=== PATIENT | male | born 1955 | race African-American/Black ===

== ENCOUNTER 2020-11-15 23:18 | Inpatient (IN) | payer OTHER, BC ==
[~2020-11-15] VITALS: Wt 111.1 kg
[~2020-11-15 23:18] MED LIST: BISOPROLOL FUM2.5 MG; FUROSEMIDE 20 M20 M1 PO; GUAIF-DM-PSE S120 ML; HUMALOG100 UNIT/1 SUBQ; LANTUS SUBQ; LISINOPRIL2.5 MG; NORCO 5-325 TA1 EACH PO
[2020-11-15 23:20] VITALS: BP 105/74
[2020-11-15 23:39] LABS: ABSOLUTE NEUTROPHILS 5.2 thou/uL (1.4-8.2); BASOPHILS 0.9 % (0.0-2.0); HEMATOCRIT 34.8 % (42.0-52.0); HEMOGLOBIN 11.4 gm/dL (14.0-18.0); LYMPHOCYTES 16.1 % (24.0-44.0); MCH 35.2 pg (26.0-34.0); MCHC 32.6 g/dL (28.0-37.0); MCV 107.8 fL (80.0-100.0); MONOCYTES 10.8 % (1.0-8.0); PLATELET COUNT 148 thou/uL (150-400); POLYS 69.2 % (36.0-66.0); RBC 3.23 mil/uL (4.50-6.00); RDW 17.3 % (10.5-14.5); WBC 7.5 thou/uL (4.0-11.0)
[2020-11-15 23:48] LABS: CALCIUM 9.1 mg/dL (8.5-10.1); CREATININE 5.4 mg/dL (0.7-1.3); POTASSIUM 4.3 mmol/L (3.5-5.1)
[2020-11-15 23:51] LABS: INR 2.7; PROTIME 28.1 Seconds (10.5-12.1)
[2020-11-15 23:58] LABS: ALBUMIN 3.6 g/dL (3.4-5.0); TOTAL BILIRUBIN 1.3 mg/dL (0.2-1.0); TOTAL PROTEIN 8.6 g/dL (6.4-8.2)
--- NOTE | 2020-11-16 00:04 | NUR ---
PT NOTED TO HAVE RIGHT UPPER ARM DIALYSIS FISTULA.
--- NOTE | 2020-11-16 00:33 | NUR ---
PT'S DTR HERE AT BEDSIDE. SHE HELPED PROVIDE PT'S HISTORY TO ER PROVIDER. PT DROWSY BUT ARROUSABLE AND ABLE TO ANSWER SOME QUESTIONS.
[2020-11-16] MEDS ORDERED: CARVEDILOL25 MG PO (01:19)
[2020-11-16] MEDS ORDERED: TORSEMIDE20 MG PO (01:21)
[2020-11-16] MEDS ORDERED: WARFARIN SODIUM6 MG PO (01:21)
[2020-11-16] MEDS ORDERED: NEURONTIN 300M300 M2 PO (01:22)
[2020-11-16] MEDS ORDERED: ASPIRIN EC81 M1 PO (01:22)
[2020-11-16 01:30] LABS: URINE BILIRUBIN 2+ (Negative); URINE BLOOD 2+ (Negative); URINE CLARITY CLEAR; URINE COLOR YELLOW; URINE GLUCOSE-RANDOM* 1+ (Negative); URINE KETONES TRACE (Negative); URINE LEUKOCYTES-REFLEX NEGATIVE (Negative); URINE NITRITE-REFLEX NEGATIVE (Negative); URINE PROTEIN (DIPSTICK) 3+ (Negative); URINE SPECIFIC GRAVITY 1.025 (1.005-1.035)
[2020-11-16 01:40] LABS: AMP/METHAMP Negative (Negative); BARBITURATES Negative (Negative); BENZODIAZEPINES Negative (Negative); COCAINE Negative (Negative); METHADONE Negative (Negative); OPIATES Negative (Negative); PCP Negative (Negative)
--- NOTE | 2020-11-16 01:50 | NUR ---
DTR WILL TAKE PATIENTS BELONGINGS HOME WITH HER. THIS INCLUDES HIS VALUABLES SUCH WALLET, CAST, CELL PHONE, CLOTHES.
[2020-11-16 02:00] LABS: BACTERIA-REFLEX 1-9 Few /HPF (None Seen); CRYSTALS None Seen /LPF (None Seen); HYALINE CASTS 0-3 Few /LPF (None Seen); MUCUS 0-3 Light strn/LPF (None Seen); SQUAMOUS 0-3 Few /LPF (0-3); URINE RBC 3-10 Few /HPF (NONE SEEN); URINE WBC-REFLEX 0-5 Rare /HPF (0-5)
[2020-11-16 03:20] VITALS: BP 153/80
--- NOTE | 2020-11-16 03:27 | NUR ---
PT IS NOW ABLE TO ANSWER ALL ORIENTATION QUESTIONS. VSS. SPO2 STABLE ON 2LNC.
--- NOTE | 2020-11-16 07:10 | EKG ---
[place] [address] [place] [address] ELECTROCARDIOGRAM REPORT Name: SOFI BARR Room #: 204-P ADM IN M.R.#: [id number] Admission: 11/16/20 Attend Phys: Lopez Mckeon Discharge: Date of : 53 Report #: [id number] [facility] ED Test Date: 2020-11-15 Test Time: 23:38:20 Pat Name: SOFI BARR Department: Room: 204 Gender: M Podiatry Doctor: SAQIB : 1955 Requested By: Keyonna Wheatley Order Number: [id number] MD: Pierce Cardenas Measurements Intervals [employer] Rate: 70 P: 71 NJ: 217 QRS: 50 QRSD: 141 T: 88 QT: 478 QTc: 516 Interpretive Statements Sinus rhythm Borderline prolonged NJ interval Nonspecific intraventricular conduction delay Borderline T abnormalities, lateral leads Baseline wander in lead(s) V5 No previous ECG available for comparison Electronically Signed On 11-16-2020 7:10:41 CDT by Pierce Cardenas [email or web address] <ELECTRONICALLY SIGNED> By: Pierce Cardenas MD, [facility] 11/16/20 0710 37 Pierce Cardenas MD, [facility] /EPI
--- NOTE | 2020-11-16 07:13 | NUR ---
REPORT CALLED TO GONZÁLEZ HARDEN ON CCU.
[2020-11-16 07:14] VITALS: BP 139/67
[2020-11-16 07:30] VITALS: BP 148/85
[2020-11-16 11:30] VITALS: BP 156/92
--- NOTE | 2020-11-16 11:49 | 2DMMODE ---
[facility] [address] [place] [address] 2 D/M-MODE ECHOCARDIOGRAM Name: SOFI BARR Room #: 204-P ADM IN M.R.#: [id number] Admission: 11/16/20 Attend Phys: Lopez Mckeon Discharge: Date of : 53 Report #: [id number] THIS REPORT FOR: cc: Payal Turner MD, Sarah Beth MD Lundgren, Craig H. MD [facility] ~ APPROVED REPORT Study performed: 11/16/2020 10:08:31 EXAM: Comprehensive 2D, Doppler, and color-flow Echocardiogram Patient Location: Bedside Room #: 204 Status: routine BSA: 2.32 HR: 62 bpm BP: 148/85 mmHg Rhythm: NSR Other Information Study Quality: Good Indications Congestive Heart Failure Diabetes Syncope Cardiomyopathy Hypertension/HDD 2D Dimensions RVDd: 42.54 mm IVSd: 14.12 (7-11mm) LVOT Diam: 20.05 (18-24mm) LVDd: 57.63 mm PWd: 14.45 (7-11mm) Ascending Ao: 30.66 (22-36mm) LVDs: 48.23 (25-40mm) Left Atrium: 56.38 (27-40mm) Aortic Root: 28.97 mm IVC: 30.00 mm Volumes Left Atrial Volume (Systole) Single Plane 4CH: 137.60 mL Single Plane 2CH: 72.79 mL LA ESV Index: 52.00 mL/m2 Aortic Valve [facility] [address] [place] [address] 2 D/M-MODE ECHOCARDIOGRAM Name: SOFI BARR Room #: 204-P [facility] IN M.R.#: [id number] Admission: 11/16/20 Attend Phys: Lopez Rangel Discharge: Date of : 53 Report #: [id number] AoV Peak Rosendo.: 1.47 m/s AO Peak Gr.: 8.63 mmHg LVOT Max P.68 mmHg LVOT Max V: 0.82 m/s GABBY Vmax: 1.76 cm2 Mitral Valve E/A Ratio: 1.9 MV Decel. Time: 143.13 ms MV E Max Rosendo.: 1.05 m/s MV A Rosendo.: 0.56 m/s MV PHT: 41.51 ms IVRT: 119.95 ms Pulmonary Valve PV Peak Rosendo.: 0.83 m/s PV Peak Gr.: 2.78 mmHg Pulmonary Vein P Vein S: 0.38 m/s P Vein A: 0.13 m/s P Vein D: 0.59 m/s P Vein A Dur.: 50.7 msec P Vein S/D Ratio: 0.64 Tricuspid Valve TR Peak Rosendo.: 3.59 m/s TR Peak Gr.: 51.49 mmHg PA Pressure: 66.00 mmHg Left Ventricle Left ventricle is dilated. There is global hypokinesis of the left ventricle. Mild concentric left ventricular hypertrophy. Left ventricular ejection fraction is severely decreased. LVEF is 30%. Severe diastolic dysfunction Right Ventricle The right ventricle is normal size. The right ventricular systolic function is normal. Atria Left atrium is dilated. Right atrium is dilated. Aortic Valve The aortic valve is mildly calcified, trileaflet No aortic regurgitation is present. There is no aortic valvular stenosis. Mitral Valve Moderate mitral annular calcification Mild mitral regurgitation. No [facility] [place] [address] 2 D/M-MODE ECHOCARDIOGRAM Name: LÓPEZWAYANIKA BARROS Room #: 204-P [facility] IN M.R.#: [id number] Admission: 11/16/20 Attend Phys: Lopez Rangel Discharge: Date of : 53 Report #: [id number] evidence of mitral valve stenosis. Tricuspid Valve The tricuspid valve is normal in structure. There is mild to moderate tricuspid regurgitation. Estimated PAP 60 mmHg. There is moderate pulmonary hypertension. Pulmonic Valve The pulmonary valve is normal in structure. Trace pulmonic regurgitation. Great Vessels The aortic root is normal in size. The inferior vena cava is dilated with no inspiratory collapse. Pericardium There is no pericardial effusion. <Conclusion> Left ventricular ejection fraction is severely decreased. There is global hypokinesis of the left ventricle. LVEF is 30%. Severe diastolic dysfunction Both atria are dilated. The aortic valve is mildly calcified, trileaflet. No aortic regurgitation or stenosis. Moderate mitral annular calcification. Mild mitral regurgitation. There is mild to moderate tricuspid regurgitation. Estimated pulmonary artery pressure of 60 mmHg. There is no pericardial effusion. <ELECTRONICALLY SIGNED> By: Barron Dyer MD, [facility] 11/16/20 1149 1149 1149 Barron Dyer MD, FACC /INF
[2020-11-16 18:48] LABS: INR 2.53; PROTIME 26.4 Seconds (10.5-12.1)
[2020-11-16 20:15] VITALS: BP 139/83
[2020-11-17 03:35] VITALS: BP 121/66
--- NOTE | 2020-11-17 03:51 | NUR ---
RECEIVED PATIENT AT 1900H.PATIENT IS ALERT AND ORIENTEDX4.ON ROOM AIR BREATHING SPONTANEOUSLY.NOT IN DISTRESS.GIVEN LITTLE SNACK AT NIGHT.KEPT NPO FROM MIDNIGHT.ALL NEEDS ATTENDED.
[2020-11-17 05:47] LABS: INR 2.26; PROTIME 23.7 Seconds (10.5-12.1)
[2020-11-17 07:08] LABS: GLYCOHEMOGLOBIN (HGB A1C) 7.1 % (4.8-5.6)
[2020-11-17 07:37] VITALS: BP 119/66
[2020-11-17 11:45] VITALS: BP 123/75
[2020-11-17 11:58] LABS: INR 1.89
--- NOTE | 2020-11-17 12:06 | NUR ---
PT OFF FLOOR FOR PROCEDURE
--- NOTE | 2020-11-17 15:19 | NUR ---
PT BACK ON FLOOR
[2020-11-17 16:00] VITALS: BP 93/46
--- NOTE | 2020-11-17 16:25 | NUR ---
met with patient who admits with syncople episode. Patient was at [facility], the game was over. Patient went to restroom, he came out and felt dizzy. Asked friend to call EMS. Patient reports he lives in independent home with steps. he reports he uses a walker in home and community. He has a power scooter if needed. His 40 year old son lives in home part-time. Patient cont to drive. he Dialzes at [facility] MWF [phone]. Patent reports he has a shower/tub with a seat and reports no difficulty with bathing. PCP Dr Fortune. Jayden following for dc planning.
[2020-11-17 19:16] VITALS: BP 102/34
--- NOTE | 2020-11-17 20:20 | NUR ---
PT WAS NPO THROUGHOUT THE MORNING EXCEPT FOR PO MEDS. PACE MAKER WAS PLACED THIS AFTERNOON, NOW HAS A INCISION ON RIGHT UPPER CHEST THAT WAS CLOSED WITH GLUE NO DRAINAGE OR REDNESS OBSERVED. DIALYSIS THIS AM 2L REMOVED. BLOOD SUGARS REMAINED BELOW 100 THERE IS NO SLIDING SCALE ON INSULIN PT REFUSED BOTH SHORT AND LONG ACTING INSULINS. PT DENIED PAIN THROUGHOUT SHIFT.
[2020-11-18] VITALS (7 sets, daily range): BP systolic 85–152; BP diastolic 38–83
[2020-11-18 04:40] LABS: INR 1.36; PROTIME 14.6 Seconds (10.5-12.1)
--- NOTE | 2020-11-18 06:42 | NUR ---
SLEPT PART OF SHIFT. ASSIST UP TO RECLINER DUE TO BACK PAIN FROM LAYING IN BED. STATES THAT RELIEVED THE PAIN. LEFT ARM IN IMMOBILIZOR PER ORDERS. CONTINUE TO ASSES.
[2020-11-18] MEDS ORDERED: LIPITOR40 MG PO (14:25)
--- NOTE | 2020-11-18 16:07 | NUR ---
Dc planning visit with pt at bedside. Possible dc this evening. Pt does not want HH services [facility]. He declined PT eval today as he had walked to the bathroom with nursing. He indicates his son can help him get to/from dialysis and he has good family support at home. He denies any dc planning needs.
--- NOTE | 2020-11-18 18:20 | NUR ---
OVERALL PT HAD A GOOD DAY. 2 BOWEL MOVEMENTS CALLS OUT APPROPRAITLY WHEN NEEDING TO GO TO THE RESTROOM. PT DECLINED PT THIS AFTERNOON AND AGREED TO WALK WITH NURSE THIS EVENING. SPOKE WITH CASE MANAGEMENT, PHYSICIAN AND PATIENT. CURRENT PLAN IS FOR THE PT TO GO HOME AFTER DIALYSIS TOMORROW. PT DECLINED HOME HEALTH STATING HIS SON WHO LIVES WITH PT CAN TAKE CARE OF HIM.
[2020-11-19 01:06] LABS: GLYCOHEMOGLOBIN (HGB A1C) 6.8 % (4.8-5.6)
--- NOTE | 2020-11-19 03:01 | NUR ---
PT IS A/O X4 AND IS UP WITH MAX ASSIST WITH WALKER AND GB TO THE BR. ROOM AIR. VSS. SR ON THE MONITOR. DC ORDER POST PONED DUE TO PT NEEDING DIALYSIS THIS AM AND NOT HAVING TRANSPORTATION. PT DENIES C/O PAIN OR DISCOMFORT. INCISION IS C/D/I. LEFT ARM IMMOBILIZER SLING IN PLACE. PT RESTING COMFORTABLY IN RECLINER. CALLS OUT APPROPRIATELY FOR ASSISTANCE.
[2020-11-19 04:45] VITALS: BP 133/65
[2020-11-19 07:50] VITALS: BP 143/56
[2020-11-19 11:30] VITALS: BP 128/57
[2020-11-19 12:50] VITALS: BP 143/56
--- NOTE | 2020-11-19 13:01 | NUR ---
Patient was provided with discharge instructions. Awaiting completion of dialysis session this afternoon prior to discharge. Will discontinue IV access at time of actual discharge from unit. Dr. Smith aware of delay of discharge pending dialysis, household personal assistant also notified.
[2020-11-19 13:23] VITALS: BP 143/56
--- NOTE | 2020-11-19 13:29 | NUR ---
Pt dcing home today after dialysis. Recommendation and order for HH referral discussed again with the pt at bedside. He declined and does not feel he needs an RN,PT or OT coming out to the home. He indicates lots of support and assist at home and son to take him to dialysis. Dc summary, instructions and flow sheets faxed to [facility] for resumption of outpt dialysis Sunday. Clinical Psychology Teacher spoke with them yesterday as well and they have him on the schedule for Sunday.
--- NOTE | 2020-11-22 07:54 | HC ---
[facility] [place] [address] CONSULTATION Name: SOFI BARR Room #: 204-P [facility] IN M.R.#: [id number] Admission: 11/16/20 Attend Phys: Lopez Mckeon Discharge: 11/19/20 Date of : 53 Report #: [id number] THIS REPORT FOR: cc: Payal Turner MD,Payal Harris-Jeison,Alayna Olea MD ~ DATE OF SERVICE: 11/16/2020 CONSULTATION NOTE REASON FOR CONSULTATION: End-stage renal disease. REASON FOR PRESENTATION: Post-syncopal episode. HISTORY OF PRESENT ILLNESS: A 65-year-old with end-stage renal disease, maintained on hemodialysis every Sunday, Sunday and Sunday. Apparently, the patient had a collapsing event and was not responsive. He called the EMS. He was brought for further evaluation and management. I reviewed the patient's medical record. Back in August of this year, he had extensive workup with nothing revealing related to another syncopal episode. I would note that the patient has received his hemodialysis yesterday. He had 3.8 liters of fluid removed. PAST MEDICAL HISTORY: 1. Hypertension. 2. End-stage renal disease. 3. Diabetes mellitus. 4. Deep venous thrombosis. PAST SURGICAL HISTORY: Hip surgery, AV fistula. SOCIAL HISTORY: No drug or alcohol abuse. FAMILY HISTORY: Diabetes mellitus. ALLERGIES: None. MEDICATIONS: 1. Carvedilol. 2. Aspirin. 3. Gabapentin. 4. Insulin. 5. Warfarin. REVIEW OF SYSTEMS: GENERAL: Significant for weakness. CARDIOVASCULAR: No chest pain or palpitation. [facility] [address] [place] [address] CONSULTATION Name: SOFI BARR Room #: 204-P [facility] IN M.R.#: [id number] Admission: 11/16/20 Attend Phys: Lopez Mckeon Discharge: 11/19/20 Date of : 53 Report #: [id number] PULMONARY: No cough or hemoptysis. GASTROINTESTINAL: No nausea or vomiting. NEUROLOGICAL: As per the history of present illness. PHYSICAL EXAMINATION: VITAL SIGNS: Blood pressure 156/92, pulse rate is 66, temperature 36.7. HEAD AND NECK: No jugular venous distention. CHEST: Decreased air entry bilaterally. CARDIOVASCULAR: No rub detected. ABDOMEN: Soft, nontender with no hepatosplenomegaly. EXTREMITIES: Lower extremities, trace edema. Upper extremity AV fistula. LABORATORY DATA: Laboratory values reviewed. Hemoglobin 11.4. Sodium is 138, potassium is 4.3, BUN is 31, creatinine 5.4. ASSESSMENT, IMPRESSION AND PLAN 1. End-stage renal disease. 2. Syncopal event post dialysis. 3. Nonischemic cardiomyopathy. 4. Deep venous thrombosis. 5. Diabetes mellitus. 6. We will arrange for the patient to have his usual hemodialysis tomorrow. 7. Workup for syncope. 8. Watch blood pressure. 9. We will continue to follow. <ELECTRONICALLY SIGNED> By: Alayna Lara MD 11/22/20 0754 1524 2244 Alayna Lara MD /nt
--- NOTE | 2020-11-27 05:38 | HC ---
[facility] [place] [address] [place] [address] CONSULTATION Name: SOFI BARR Room #: 204-P [facility] IN M.R.#: [id number] Admission: 11/16/20 Attend Phys: Lopez Mckeon Discharge: 11/19/20 Date of : 53 Report #: [id number] THIS REPORT FOR: cc: Payal Turner MD,Payal Henley,Heber Hinds MD ~ DATE OF SERVICE: 11/16/2020 HISTORY OF PRESENT ILLNESS: A 65-year-old male patient who was seen by me for any neurological etiology for the patient's syncope. I reviewed the patient's note. I do not have the record from the computer. This patient had at least 3 episodes of syncope. Two of them happened during the dialysis and one of them happened without dialysis. During this last spell, he was noticed to have possibility of seizure. He does not remember much about that episode. Apparently, he was shaking and unresponsive. He had a workup done at [facility]. He does not know what workup was done. The records from cardiology notes were reviewed and it looks like he has a significantly decreased ejection fraction. They were considering ICD placement. He had a 30 days' monitor put in and apparently that did not demonstrate any abnormality as far as he can tell. REVIEW OF SYSTEMS: Positive for hypertension, diabetes, end-stage renal disease, frequent falls. He is on hemodialysis. That was his relevant 14-point review of system. He is also on chronic anticoagulation because of a DVT as I understand from him. PAST MEDICAL HISTORY: Positive for end-stage renal disease. FAMILY HISTORY: Positive for NH. SOCIAL HISTORY: He says he does not smoke or drink on a regular basis. PHYSICAL EXAMINATION: Indicates he is alert, responsive, able to follow simple commands. His speech, concentration looks intact. Cranial nerve and neuromuscular examination appears unremarkable except he does not have reflexes in the lower extremities and his position sense is impaired and so his pinprick in both lower extremities. He also has discoloration there. His pulses are very difficult to feel. He does appear to have question of edema in the legs, but it is not very prominent. His hearing and vision looks okay. His cardiac and respiratory examination clinically looks unremarkable. He is a well-built individual. He has no thyroid mass. There are no carotid bruits. VITAL SIGNS: His blood pressure is 156/92, respirations 28, pulse is 66, temperature is 98. LABORATORY DATA: Indicates an MCV of 107. Platelet count is decreased [place] 1.8. [place] [address] CONSULTATION Name: SOFI BARR Room #: 204-P [facility] IN M.R.#: [id number] Admission: 11/16/20 Attend Phys: Lopez Mckeon Discharge: 11/19/20 Date of : 53 Report #: [id number] INR is 2.7. He did have a CT scan of the head and C-spine when he was admitted, which showed some chronic changes. IMPRESSION: Most likely the episode of syncope is because of non-neurological, especially cardiac changes, but this is the multiple episodes he is having, so I will go ahead and get an MRI and MRA on him. I will try to get the record from [facility] and review it once we get it. I discussed all of it with the patient in detail and the precautions he needs to take. He should not drive. Driving restriction should be at least for 6 months and should also take other precautions, so that he does not get hurt if he has a syncope or a seizure. The seizure was most likely secondary seizure because of some cardiac event, which can be hypertension or which can be arrhythmia, but multiple etiologies can cause these kind of symptoms. He is also predisposed for vascular problems. I will check an MRI/MRA and EEG and get the record from [facility]. Thank you very much for this referral and if you have any questions, please feel free to contact me. <ELECTRONICALLY SIGNED> By: Heber Henley MD 11/27/20 0538 1113 1235 Heber Henley MD /nt
--- NOTE | 2020-11-27 05:39 | EEG ---
[facility] [address] [place] [address] ELECTROENCEPHALOGRAM Name: SOFI BARR Room #: 204-P [facility] IN M.R.#: [id number] Admission: 11/16/20 Attend Phys: Lopez Judd Claireparker Discharge: 11/19/20 Date of : 53 Report #: [id number] THIS REPORT FOR: //name// DATE OF SERVICE: 11/16/2020 This patient is being evaluated for syncope. EEG was done by placing the electrode by standard 10-20 system of electrode placement. Both referential and sequential montages were used for recording. Background activity in this patient's EEG is about 9 Hz and 20 microvolt. There is a symmetrical activity. Photic stimulation is unremarkable. The patient became drowsy and that is associated with bilateral slowing and vertex sharp waves. Throughout the record, no active epileptiform activity was noticed. IMPRESSION: This patient's EEG is unremarkable. <ELECTRONICALLY SIGNED> By: Heber Henley MD 11/27/20 0539 0915 Heber Henley MD /nt
== END 2020-11-19 20:00 | disposition home or self-care (01) | DRG 226 ==
LOC: ER 23:18 → 2N 11-16 02:24 → EROBS 11-16 02:24 → 2N 11-16 07:09
PROVIDERS: Emergency Medicine; Hospitalist; Internal Medicine Cardiovascular Disease; Nurse Practitioner; Nurse Practitioner Family; ADMIT Hospitalist; ATTEND Hospitalist
PROC: 02HK3KZ Insertion of Defibrillator Lead into Right Ventricle, Percutaneous Approach (ICD-10-PCS; principal; 2020-11-17)
PROC: 02H63KZ Insertion of Defibrillator Lead into Right Atrium, Percutaneous Approach (ICD-10-PCS; principal; 2020-11-17)
PROC: 0JH608Z Insertion of Defibrillator Generator into Chest Subcutaneous Tissue and Fascia, Open Approach (ICD-10-PCS; principal; 2020-11-17)
PROC: 5A1D70Z Performance of Urinary Filtration, Intermittent, Less than 6 Hours Per Day (ICD-10-PCS; principal; 2020-11-17)
PROC: 5A1D70Z Performance of Urinary Filtration, Intermittent, Less than 6 Hours Per Day (ICD-10-PCS; 2020-11-19)
DX: I49.9 Cardiac arrhythmia, unspecified (principal); J96.01 Acute respiratory failure with hypoxia; N18.6 End stage renal disease; G93.41 Metabolic encephalopathy; I50.21 Acute systolic (congestive) heart failure; I42.8 Other cardiomyopathies; I13.2 Hypertensive heart and chronic kidney disease with heart failure and with stage 5 chronic kidney disease, or end stage renal disease; E78.5 Hyperlipidemia, unspecified; E11.22 Type 2 diabetes mellitus with diabetic chronic kidney disease; Z20.822 Contact with and (suspected) exposure to COVID-19; I95.9 Hypotension, unspecified; D69.6 Thrombocytopenia, unspecified; Z79.4 Long term (current) use of insulin; Z86.718 Personal history of other venous thrombosis and embolism; Z82.49 Family history of ischemic heart disease and other diseases of the circulatory system; Z79.01 Long term (current) use of anticoagulants